=== PATIENT | male | born 1980 | race Caucasian/White ===

== ENCOUNTER 2017-04-07 09:40 | Emergency (ER) | payer OTHER ==
[~2017-04-07] VITALS: Ht 180.3 cm; Wt 73.5 kg
[~2017-04-07 09:40] MED LIST: ASPI-390 PO; FEXO1TAB46 PO; OXYM0.056 NAE
[2017-04-07 09:45] VITALS: TEMP 37; Ht 180.3 cm; Wt 73.5 kg
[2017-04-07] MEDS ORDERED: IBUPROFEN 600 MG TAB PO STA (09:51)
--- NOTE | 2017-04-07 10:48 | DIAGNOSTIC IMAGING REPORT ---
LEFT SHOULDER 3 VIEWS HISTORY: left shoulder pain COMPARISON: None. FINDINGS: There is no fracture or dislocation. Soft tissues are unremarkable. No radiopaque foreign bodies. IMPRESSION: No fractures. Electronically signed by: Jorge Ham M.D. 04/07/2017 10:47 AM Dictated Date/Time: 04/07/2017 10:46 AM
--- NOTE | 2017-04-07 10:50 | DIAGNOSTIC IMAGING REPORT ---
CHEST 2 VIEWS ROUTINE HISTORY: left chest pain COMPARISON: Chest CTA 01/04/2015. FINDINGS: The lungs are clear. Cardiac silhouette is normal in size. No pleural effusions. No pneumothorax. IMPRESSION: No acute process. Electronically signed by: Jorge Ham M.D. 04/07/2017 10:49 AM Dictated Date/Time: 04/07/2017 10:47 AM
[2017-04-07 11:35] VITALS: BP 127/79; PULSE 84; O2SAT 99
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
== END 2017-04-07 11:36 | disposition home or self-care (01) ==
LOC: C.EDA 09:40 → EDBD 09:40 → C.EDA 11:36
DX: S40.012A Contusion of left shoulder, initial encounter (principal); S20.212A Contusion of left front wall of thorax, initial encounter; V57.5XXA Driver of pick-up truck or van injured in collision with fixed or stationary object in traffic accident, initial encounter; Y92.411 Interstate highway as the place of occurrence of the external cause; Z87.891 Personal history of nicotine dependence